=== PATIENT | male | born 1960 | race Caucasian/White ===

== ENCOUNTER 2023-01-15 20:39 | Emergency (ER) | payer BC ==
[2023-01-15] MEDS ORDERED: Sodium Chloride 0.9% 2.5 ML Syringe FLUSH PRN (20:43)
[2023-01-15] MEDS ORDERED: Sodium Chloride 0.9% 10 ML Syringe FLUSH PRN (20:43)
[2023-01-15] MEDS ORDERED: Aspirin 81 MG Tab.Chew PO ONE (21:19)
[2023-01-15 21:25] LABS: CARBON DIOXIDE,CO2 28.7 mmol/L (21.0-32.0); POTASSIUM,K 3.4 mmol/L (3.5-5.1)
[2023-01-15] MEDS ORDERED: Morphine 2 MG/ML SYRINGE IVPUSH ONE (21:54)
[2023-01-15] MEDS ORDERED: Ondansetron 4 MG/2 ML SDV IVPUSH ONE (21:54)
[2023-01-15 22:08] LABS: CORONAVIRUS COVID-19 NAA NEGATIVE (NEGATIVE); INFLUENZA A NAA NEGATIVE (NEGATIVE); INFLUENZA B NAA NEGATIVE (NEGATIVE)
[2023-01-16] MEDS ORDERED: Iopamidol 755 MG/ML 500 ML Multipack Bottle IVPUSH ONE (00:31)
== END 2023-01-16 01:00 | disposition home or self-care (01) ==
LOC: MW.ED 20:39
DX: R07.2 Precordial pain (principal); Z20.822 Contact with and (suspected) exposure to COVID-19
CPT/HCPCS: 0240U; 36415; 71045; 71275; 80053; 84443; 84484; 85025; 85379; 93005; 99285; A9270; J3490; Q9967; 93010; 99284

== ENCOUNTER 2023-11-04 09:15 | Day surgery (SDC) | payer BC ==
[~2023-11-04 09:15] MED LIST: Lactated Ringers 1,000 ML IV SCH
[2023-11-04] MEDS ORDERED: propofoL 50 ML ONE (10:25)
== END 2023-11-04 12:14 | disposition home or self-care (01) ==
LOC: MW.SDS 09:15
PROVIDERS: ATTEND Surgery
DX: Z12.11 Encounter for screening for malignant neoplasm of colon (principal); K64.8 Other hemorrhoids; I10 Essential (primary) hypertension; E78.5 Hyperlipidemia, unspecified; Z79.899 Other long term (current) drug therapy
CPT/HCPCS: 45378; J2704; J7120; 00812